=== PATIENT | male | born 1960 | race Asian ===

== ENCOUNTER 2022-05-21 09:36 | Emergency (ER) | payer OTHER ==
[~2022-05-21] VITALS: Ht 172.7 cm; Wt 90.7 kg
[2022-05-21 09:36] VITALS: BP_SYST 112
--- NOTE | 2022-05-21 09:40 | NUR ---
BROUGHT IN BY [facility], PLACED IN BED #4 AND TRIAGED. REPORT GIVEN TO VAISHALI
--- NOTE | 2022-05-21 10:08 | NUR ---
assumed patient care pt aox4 gcs 15 c/o SOB, cough, sneezing and dizziness x 1 day. patient has his of asthma takes albuteral. pt states his symtoms exacerbates with movement. pt placed in room 4 resting comfortably family at bedside.
[2022-05-21] MEDS ORDERED: ALBUTEROL SULFATE 0.083% 2.5 MG/3 ML VIAL.NEB INH ONE ×2 (10:15→11:00)
[2022-05-21] MEDS ORDERED: METHYLPREDNISOLONE SOD SUCC 40 MG/ML VIAL IVP ONE (10:15)
[2022-05-21] MEDS ORDERED: IPRATROPIUM BROM 0.5 MG/2.5 ML VIAL.NEB (ATROVENT) INH ONE ×2 (10:15→11:00)
[2022-05-21 10:32] LABS: BASOPHILS % (AUTO) 0.3 % (0.0-2.0); EOSINOPHILS # (AUTO) 0.2 K/uL (0.0-0.4); EOSINOPHILS % (AUTO) 3.1 % (0.0-4.0); HEMATOCRIT 39.9 % (36-54); HEMOGLOBIN 13.4 g/dL (14.0-18.0); LYMPHOCYTES # (AUTO) 0.9 K/uL (1.0-5.5); LYMPHOCYTES % (AUTO) 12.1 % (20.5-51.5); MEAN CORPUSCULAR HEMOGLOBIN 32 pg (27-31); MEAN CORPUSCULAR HGB CONC 34 % (32-36); MEAN CORPUSCULAR VOLUME 94 fL (79.0-98.0); MONOCYTES # (AUTO) 0.5 K/uL (0.0-1.0); MONOCYTES % (AUTO) 6.2 % (1.7-9.3); NEUTROPHILS % (AUTO) 78.3 % (40.0-70.0); PLATELET COUNT (AUTO) 200 K/uL (130-430); RED BLOOD CELL COUNT(AUTO) 4.25 MIL/uL (4.2-6.2); RED CELL DISTRIBUTION WIDTH 13.2 % (9.0-15.0); WHITE BLOOD COUNT (AUTO) 7.7 K/uL (4.8-10.8)
[2022-05-21 10:49] LABS: ANION GAP 8 (5-15); CALCIUM 8.8 mg/dL (8.4-11.0); CHLORIDE 102 mmol/L (98-107); CREATININE 0.78 mg/dL (0.55-1.30); GLUCOSE 213 mg/dL (70-99); UREA NITROGEN, BLOOD 12 mg/dL (8-21)
[2022-05-21] MEDS ORDERED: methylPREDNISolone SOD SUCC/PF 62.5 MG/ML VIAL ONE (10:50)
[2022-05-21 10:52] LABS: GFR AFRICAN AMERICAN 130 mL/min (>90)
[2022-05-21 10:57] LABS: ALANINE AMINOTRANSFERASE 28 U/L (12-78); ALBUMIN 3.9 g/dL (3.4-4.8); ASPARTATE AMINOTRANSFERASE 19 U/L (10-37); TOTAL BILIRUBIN 0.5 mg/dL (0.0-1.0)
--- NOTE | 2022-05-21 11:49 | NUR ---
Patient taken off oxygen for assessment on RA
--- NOTE | 2022-05-21 12:19 | NUR ---
patient sating 94% on room air no distress noted.
--- NOTE | 2022-05-21 13:55 | NUR ---
IV removed intact
[2022-05-21] MEDS ORDERED: ALBMDI INH (13:58)
[2022-05-21] MEDS ORDERED: PRED20TA PO (13:58)
--- NOTE | 2022-05-21 14:15 | NUR ---
Patient given written and verbal discharge instructions and verbalizes understanding. ER MD discussed with patient the results and treatment provided. Patient in stable condition. ID arm band removed. IV catheter removed intact and dressing applied, no active bleeding. Rx of Albuteral and prednisone given. Patient educated on pain management and to follow up with PMD. Pain Scale . Opportunity for questions provided and answered. Medication side effect fact sheet provided.
[2022-05-21 14:16] VITALS: BP_SYST 170
== END 2022-05-21 14:15 | disposition home or self-care (01) ==
LOC: SED 09:36
DX: J45.901 Unspecified asthma with (acute) exacerbation (principal); R06.02 Shortness of breath; R05.9 Cough, unspecified; Z79.899 Other long term (current) drug therapy; Z20.822 Contact with and (suspected) exposure to COVID-19
CPT/HCPCS: 80053; 83880; 85025; 84484; 36415; 93005; 71045; 94640; 99291; 96374; 87804 ×2; 87426; J1030; J2930; J7613